=== PATIENT | female | born 1940 | race Asian ===

== ENCOUNTER 2017-04-04 20:42 | Emergency (ER) | payer OTHER ==
[2017-04-04 20:58] VITALS: BMI 26.4
--- NOTE | 2017-04-04 21:58 | PDOC ---
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 Patients Hx provided via video game tester phones as patient speaks Upper Sorbian. Patient notes that when she lifts her L leg her L hip hurts. Patient reports falling in October and experiencing similar symptoms that went away. Patient also endorses tingling in L foot. Patient denies recent trauma. Patient denies numbness. Patient denies fevers, chills, nausea, vomiting and diarrhea. Patient denies chest pain, palpitations and lightheadedness. Patient denies problems with urination. [employer] phone- [phone] <AsatrangAlessandra amanda - Last Filed: 04/05/17 00:40> - General Chief Complaint: Back Pain Stated Complaint: LOWER BACK PAIN Time Seen by Provider: 04/04/17 20:59 Past History - Past Medical History Suicide Attempt (Hx): No - Surgical History Cholecystectomy: Yes (MORE THAN 10 YEARS AGO) - Psycho/Social/Smoking Cessation Hx Anxiety: No Suicidal Ideation: No Smoking History: Never smoked Have you smoked in the past 12 months: No Hx Alcohol Use: No Drug/Substance Use Hx: No Substance Use Type: None <Elaine Wilcox - Last Filed: 04/05/17 00:25> <AsakayAlessandra - Last Filed: 04/05/17 00:40> - Past Medical History Allergies/Adverse Reactions: Allergies Allergy/AdvReac Type Severity Reaction Status Date / Time No Known Allergies Allergy Verified 04/04/17 21:13 Home Medications: Ambulatory Orders Nitrofurantoin Macrocrystal [Macrodantin -] 100 mg PO BID #14 capsule 04/05/17 Review of Systems - Review of Systems Able to Perform ROS?: Yes Comments:: CONSTITUTIONAL: Absent: fever, chills, diaphoresis, generalized weakness, malaise, loss of appetite HEENT: Absent: rhinorrhea, nasal congestion, throat pain, throat swelling, difficulty swallowing, mouth swelling, ear pain, eye pain, visual Changes CARDIOVASCULAR: Absent: chest pain, syncope, palpitations, irregular heart rate , lightheadedness, peripheral edema RESPIRATORY: Absent: cough, shortness of breath, dyspnea with exertion, orthopnea, wheezing, stridor, hemoptysis GASTROINTESTINAL: Absent: abdominal pain, abdominal distension, nausea, vomiting , diarrhea, constipation, melena, hematochezia GENITOURINARY: Absent: dysuria, frequency, urgency, hesitancy, hematuria, flank pain, genital pain MUSCULOSKELETAL: + Lower back pain radiating to L leg. Absent: joint swelling SKIN: Absent: rash, itching, pallor NEUROLOGIC: Absent: headache, focal weakness or paresthesia, dizziness, unsteady gait, seizure, mental status changes, bladder or bowel incontinence PSYCHIATRIC: Absent: anxiety, depression, suicidal or homicidal ideation, hallucination <KatelynnAlessandra - Last Filed: 04/05/17 00:40> *Physical Exam - Vital Signs Last Vital Signs Temp Pulse Resp BP Pulse Ox 98.1 F 81 18 124/65 96 04/04/17 20:54 04/04/17 20:54 04/04/17 20:54 04/04/17 20:54 04/04/17 20:54 <Elaine Wilcox - Last Filed: 04/05/17 00:25> - Vital Signs Last Vital Signs Temp Pulse Resp BP Pulse Ox 98.1 F 81 18 124/65 96 04/04/17 20:54 04/04/17 20:54 04/04/17 20:54 04/04/17 20:54 04/04/17 20:54 - Physical Exam Comments: GENERAL: Well-appearing, well-nourished. No apparent distress. HEENT: Normocephalic, atraumatic. PERRL, EOM intact. CARDIOVASCULAR: Normal S1, S2. Regular rate and rhythm. PULMONARY: Clear to auscultation bilaterally. ABDOMEN: Soft, non-distended, non-tender. EXTREMITIES: Normal ROM in all four extremities. No gross deformities. SKIN: Warm, dry. No rash NEUROLOGICAL: No focal neurological deficits. Cranial nerves 2-12 intact. No fecal incontinence. <KatelynnAlessandra - Last Filed: 04/05/17 00:40> ED Treatment Course - ADDITIONAL ORDERS Additional order review: Laboratory Results 04/04/17 22:40 Urine Color Straw Urine Appearance Clear Urine pH 7.0 Urine Protein Negative Urine Glucose (UA) Negative Urine Ketones Negative Urine Blood Negative Urine Nitrite Negative Urine Bilirubin Negative Urine Urobilinogen Negative Ur Leukocyte Esterase 2+ H Urine RBC 1 Urine WBC 11 Ur Epithelial Cells Rare - RADIOLOGY Radiograph Interpretation: CT Lumbar Spine Impression: L2-L3 moderate degenerative disc disease with mild broad-based disc bulge L3- L4 mild broadbase disc bulge probably slightly impinging right L3 nerve root with mild to moderate degenerative central spinal canal stenosis. L4-L5 mild disc bulge impinging right L4 nerve root with moderate degenerative central spinal canal stenosis - Medications Given in the ED: ED Medications Discontinued Medications Generic Name Dose Route Start Last Admin Trade Name Freq PRN Reason Stop Dose Admin Ketorolac Tromethamine 60 mg 04/04/17 22:28 04/04/17 22:47 Toradol Injection - IM 04/04/17 22:29 60 mg ONCE ONE Administration <Alessandra Pace - Last Filed: 04/05/17 00:40> Medical Decision Making - Medical Decision Making 04/05/17 00:25 I explained to the patient and her through a Upper Sorbian video game tester using the [employer] phone if she ever experiences any saddle anesthesia, weakness to her legs, incontinence of stool that this is an emergency. She must return to emergency department immediately if this happens a copy of the CAT scan was given to the patient to take to her physician in [place], [place] No acute vertebral fractures were appreciated. However, she had extensive degenerative joint disease and some mild nerve impingement with spinal stenosis pt's pain resolved and she was discharged home <Elaine Wilcox - Last Filed: 04/05/17 00:25> *DC/Admit/Observation/Transfer <Elaine Wilcox - Last Filed: 04/05/17 00:25> - Attestations Scribe Attestion: Documentation prepared by Alessandra Pace, acting as medical receptionist for Elaine Wilcox MD/DO. <Alessandra Pace - Last Filed: 04/05/17 00:40> Diagnosis at time of Disposition: Low back pain Qualifiers: Chronicity: unspecified Back pain laterality: unspecified Sciatica presence: without sciatica Qualified Code(s): M54.5 - Low back pain DJD (degenerative joint disease), lumbar Qualifiers: Spinal osteoarthritis complication: unspecified spinal osteoarthritis Qualified Code(s): M47.816 - Spondylosis without myelopathy or radiculopathy, lumbar region - Discharge Dispostion Disposition: HOME Condition at time of disposition: Stable - Prescriptions Prescriptions: Nitrofurantoin Macrocrystal [Macrodantin -] 100 mg PO BID #14 capsule - Patient Instructions Printed Discharge Instructions: DI for Low Back Pain Additional Instructions: please see your doctor this week
[2017-04-04] MEDS ORDERED: KETOROLAC TROMETHAMINE 60 MG/2 ML VIAL IM ONE (22:28)
[2017-04-04] MEDS ORDERED: KETOROLAC TROMETHAMINE 60 MG/2 ML VIAL ONE ×2 (22:40→22:41)
[2017-04-04 22:50] LABS: URINE APPEARANCE CLEAR; URINE BILIRUBIN NEGATIVE (NEGATIVE); URINE BLOOD NEGATIVE (NEGATIVE); URINE COLOR STRAW; URINE GLUCOSE (UA) NEGATIVE (NEGATIVE); URINE KETONE NEGATIVE (NEGATIVE); URINE NITRITE NEGATIVE (NEGATIVE); URINE PROTEIN NEGATIVE (NEGATIVE); URINE UROBILINOGEN NEGATIVE E.U./dl (0.2-1.0)
[2017-04-04 23:06] LABS: URINE LEUK ESTERASE 2+ (NEGATIVE)
[2017-04-04 23:07] LABS: URINE RBC 1 /hpf (0-3); URINE WBC 11 /hpf (3-5)
[2017-04-05 00:47] VITALS: BP 125/68; PULSE 78; TEMP 98
== END 2017-04-05 00:40 | disposition home or self-care (01) ==
LOC: JER 20:42
PROC: 3E0233Z Introduction of Anti-inflammatory into Muscle, Percutaneous Approach (ICD-10-PCS; principal; 2017-04-04)
DX: M47.816 Spondylosis without myelopathy or radiculopathy, lumbar region (principal); G30.9 Alzheimer's disease, unspecified; F02.80 Dementia in other diseases classified elsewhere, unspecified severity, without behavioral disturbance, psychotic disturbance, mood disturbance, and anxiety; E78.00 Pure hypercholesterolemia, unspecified
CPT/HCPCS: 72131-TC; 81003; 81015; 96372; 99282-25

== ENCOUNTER 2017-04-22 15:34 | Emergency (ER) | payer OTHER ==
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
[2017-04-22 15:49] VITALS: TEMP 98.3; BMI 23.8
[2017-04-22] MEDS ORDERED: NAPROXEN 500 MG TABLET (FP) PO ONE (16:08)
[2017-04-22] MEDS ORDERED: traMADol HCL 50 MG TABLET PO ONE (16:08)
[2017-04-22] MEDS ORDERED: NAPROXEN 500 MG TABLET (FP) ONE (16:22)
[2017-04-22] MEDS ORDERED: traMADol HCL 50 MG TABLET ONE (16:23)
[2017-04-22 17:30] VITALS: BP 134/72; PULSE 73
== END 2017-04-22 17:30 | disposition home or self-care (01) ==
LOC: JER 15:34
DX: M54.16 Radiculopathy, lumbar region (principal); E78.00 Pure hypercholesterolemia, unspecified
CPT/HCPCS: 99282-25

== ENCOUNTER 2018-06-22 12:59 | Emergency (ER) | payer OTHER ==
--- NOTE | 2018-06-22 13:14 | PDOC ---
Attending Attestation - HPI HPI: 06/22/18 15:53 The patient is a 77 year old female with a significant PMH of hypercholesterolemia, disc disease, and alzheimer's who presents to the emergency department with worsening back pain today. The patient reports that her back pain is right sided and non radiating. The patient states that she was at home sitting down after breakfast when she felt an onset of back pain. The patient's son reports that the patient was seen in the hospital about 1 year ago with similar complaints by which she received a shot in her back for pain. The patient denies any other symptoms. She denies any fever, chills, nausea, vomit, diarrhea, constipation or urinary symptoms. She denies chest pain, shortness of breath, headache and dizziness. The patient denies any other complaints. - Physicial Exam PE: 06/22/18 15:53 GENERAL: Awake, alert, and fully oriented, in no acute distress HEAD: No signs of trauma EYES: PERRLA, EOMI, sclera anicteric, conjunctiva clear ENT: Auricles normal inspection, hearing grossly normal, nares patent, oropharynx clear without exudates. Moist mucosa NECK: Normal ROM, supple, no lymphadenopathy, JVD, or masses LUNGS: Breath sounds equal, clear to auscultation bilaterally. No wheezes, and no crackles HEART: Regular rate and rhythm, normal S1 and S2, no murmurs, rubs or gallops ABDOMEN: Soft, nontender, normoactive bowel sounds. No guarding, no rebound. No masses EXTREMITIES: Normal range of motion, no edema. No clubbing or cyanosis. No cords, erythema, or tenderness NEUROLOGICAL: (+)paraspinal lumbar spine tenderness. Normal sensation, neuro intact. Cranial nerves II through XII grossly intact. Normal speech, normal gait SKIN: Warm, Dry, normal turgor, no rashes or lesions noted. Documentation prepared by Zahira Whitlock, acting as diploma medical assistant for Loreto Madden MD. <Zahira Whitlock - Last Filed: 06/22/18 15:53> - Resident Resident Name: Bryant Nevarez - ED Attending Attestation I have performed the following: I have examined & evaluated the patient, The case was reviewed & discussed with the resident, I agree w/resident's findings & plan, Exceptions are as noted - Medical Decision Making 06/22/18 13:14 I, Dr. Loreto Madden, DO, attest that this document has been prepared under my direction and personally reviewed by me in its entirety. I further attest, that it accurately reflects all work, treatment, procedures and medical decision -making performed by me. 06/22/18 14:53 a/p: 77yo female with worsening back pain -no new trauma. -no radiation of pain, no paresthesias, no red flags for acute back pain, no loss of control of bowel or bladder, no caude equina symptoms -will send labs, xray lumbar spine, will medicate for pain -no abd pain, no palpable masses, hx of lumbar spine djd with hx of epidural injection to L spine -will need outpt follow up with ortho vs spine -discussed the plan with the son and the patient who agree with the plan. 06/22/18 17:09 pt with L1 partial compression fx on xray case discussed with Dr. Brown - no neuro deficits on exam, recommends outpt follow up in the office recommends TLSO brace if pain or neuro deficits occur then return STAT to the ED 06/22/18 17:18 TLSO brace applied to the patient discussed in detail all reasons to return to the ED answered all questions stable for d/c to home ambulated in the ED <Loreto Madden - Last Filed: 06/22/18 17:32> Discharge Disposition - Discharge Dispostion Decision to Admit order: No <Loreto Madden - Last Filed: 06/22/18 17:32> - Diagnosis Low back pain, Compression fracture of L1 lumbar vertebra - Discharge Dispostion Disposition: HOME Condition at time of disposition: Stable - Prescriptions Prescriptions: Oxycodone HCl/Acetaminophen [Percocet 5-325 mg Tablet] 1 tab PO Q6H PRN #10 tablet MDD 4 tabs PRN Reason: Pain - Referrals Referrals: Abimael Brown MD, [facility] [Staff Physician] - - Patient Instructions Printed Discharge Instructions: DI for Vertebral Fracture Additional Instructions: Please call Dr. Brown to schedule and appointment. Please return to the Ed if you pain worsens. Please be careful taking the percocet. Please wear the brace for support. Please return to the ED if you develop weakness or numbness. Please follow up with your PMD.
[2018-06-22 13:16] VITALS: TEMP 99.8; BMI 27.1
[2018-06-22] MEDS ORDERED: METHOCARBAMOL 500 MG TABLET PO ONE (13:37)
[2018-06-22] MEDS ORDERED: ACETAMINOPHEN 500 MG TABLET (FP) PO ONE (13:37)
--- NOTE | 2018-06-22 14:03 | PDOC ---
History of Present Illness - General Chief Complaint: Back Pain Stated Complaint: PAIN Time Seen by Provider: 06/22/18 13:09 History Source: Patient, Family (Son present for interview.) Exam Limitations: Language Barrier (Pt is primarily Danish speaking but conversent in Kenyan. Son provided occasional interpretation as needed. ) - History of Present Illness Initial Comments: 77 y/o female presenting to [facility] ER via ambulance complaining of lower back pain. The symptoms began approx. 40 min ago while the pt was at rest. Pain is localized to lower right paraspinous region without radiation; made worse by movement of trunk. Denies numbness, weakness, or paresthesia to lower limbs. Denies urinary or bladder incontinence. She denies recent trauma to the area. Has experienced similar pain approx. 1 year ago. Was evaluated in this facility. CT of lumbar spine showed disc bulging L2-L5 with possible impingement of R L3 and L4 nerve roots (Full report in [employer]). Pain was controlled and pt was given referral for outpatient neurology f/u but she reports never following up as her pain did not return. Past History - Past Medical History Allergies/Adverse Reactions: Allergies Allergy/AdvReac Type Severity Reaction Status Date / Time No Known Allergies Allergy Verified 06/22/18 13:08 Home Medications: Ambulatory Orders Cholecalciferol (Vitamin D3) [Vitamin D3] 1,000 unit PO DAILY 06/22/18 Gabapentin [Neurontin -] 100 mg PO Q8H 06/22/18 Losartan Potassium [Cozaar -] 25 mg PO DAILY 06/22/18 Meloxicam [Mobic (Nf) -] 7.5 mg PO DAILY 06/22/18 Memantine HCl [Memantine HCl ER] 14 mg PO DAILY 06/22/18 Oxycodone HCl/Acetaminophen [Percocet 5-325 mg Tablet] 1 tab PO Q6H PRN #10 tablet MDD 4 tabs 06/22/18 COPD: No HTN: Yes Hypercholesterolemia: Yes - Surgical History Cholecystectomy: Yes (MORE THAN 10 YEARS AGO) - Immunization History Immunization Up to Date: Yes - Suicide/Smoking/Psychosocial Hx Smoking History: Never smoked Have you smoked in the past 12 months: No Information on smoking cessation initiated: No Hx Alcohol Use: No Drug/Substance Use Hx: No Substance Use Type: None Review of Systems - Review of Systems Able to Perform ROS?: Yes Is the patient limited Kenyan proficient: Yes Constitutional: No: Weakness HEENTM: No: Recent change in vision, Hearing Loss Respiratory: No: Shortness of Breath Cardiac (ROS): No: Chest Pain ABD/GI: No: Constipated, Diarrhea, Nausea, Vomiting, Abdominal cramping Musculoskeletal: Yes: Back Pain, Muscle Pain. No: Muscle Weakness Integumentary: No: Bruising Neurological: No: Numbness, Paresthesia, Tingling, Weakness *Physical Exam - Vital Signs Last Vital Signs Temp Pulse Resp BP Pulse Ox 99.8 F H 88 18 159/83 98 06/22/18 13:15 06/22/18 13:15 06/22/18 13:15 06/22/18 13:15 06/22/18 13:15 - Physical Exam Comments: Constitutional: Well-developed, well-nourished female in no acute life threat but some obvious discomfort. Found semi-fowlers in hospital bed. Alert and oriented x4. Answered all questions appropriately and completely. Speech was non -labored, non-pressured. HEENT: Normocephalic. No obvious external signs of trauma. Hearing grossly normal. No nasal discharge. Neck is supple, trachea is midline. Cardiovascular: Regular rate and regular rhythm. No murmur, rubs, clicks, or gallops. Peripheral pulses: Radial pulses full. Respiratory: Equal chest rise and fall. Clear to auscultation bilaterally. No stridor, no wheezing, no rhonchi. Neuro: Alert and oriented. Moving all four extremities spontaneously. Intact sensation to all four extremities. Hip flexion, extension, adduction, and abduction 5/5; plantar flexion and dorsiflexion 5/5. Back / MSK: No midline tenderness in thoracic or lumbar spines. No obvious bony deformities. No bruising or other obvious signs of trauma to the area. Skin: Warm, dry, and intact. No bruising, rashes, or other lesions. No palpable nodules. Psych: Affect: appropriate. Mood: normal. ED Treatment Course - LABORATORY CBC & Chemistry Diagram: 06/22/18 14:20 06/22/18 14:20 - RADIOLOGY Radiology Studies Ordered: Category Date Time Status SPINE-LUMBAR SACRAL [RAD] Stat Radiology 06/22/18 13:56 Ordered Medical Decision Making - Medical Decision Making *Reviewed nursing notes and prior visit documentation. 77 y/o female complaining of lower back pain in setting of known old traumatic injury to area. No red flags concerning for cauda equina or high level cord compression elicited. Abebrile. Vitals remarkable for hypertension without tachycardia. Physical exam revealed subjective tenderness to right paraspinous area with intact neurovascular exam of lower extremities. Suspect musculoskeletal versus radiculopathy back pain. Low suspicion for abscess as pain is acute onset, no identifiable risk factors, and afebrile Low suspicion for aortic dissection as pain is very similar to past in setting of known traumatic injury to the area. Low suspicion for nephrolithiasis or pyelonephritis. Will obtain CBC, BMP, UA, urine culture, and plain films of lower back. Ordered tylenol and robaxin for symptom relief. 16:40 Pt reports her back pain feels better. CBC, BMP, and UA are unremarkable for derangement. Plain films showed Continue to suspect MSK pain. Lumbar Sacral Plain Films: Compression fracture of L1. Not documented on previous CT. Likely source of pain. Attending telephone consult with Dr. Abimael Brown, who recommends application of TLSO back brace with outpatient follow up. Asked for pt to call office. Would like to evaluate on the or 04 of July. Discussed results and recommendations with pt and son. Both expressed verbal understanding and agreement with plan to discharge home with outpatient follow up. Will prescribe Percocet for pain relief. Strict instructions were given for pt to not be left alone while taking this medication. Also gave strict return precautions. Pt discharged from department without further incident. *DC/Admit/Observation/Transfer Diagnosis at time of Disposition: Low back pain Qualifiers: Chronicity: acute Back pain laterality: right Sciatica presence: without sciatica Qualified Code(s): M54.5 - Low back pain Compression fracture of L1 lumbar vertebra Qualifiers: Encounter type: initial encounter Fracture type: closed Qualified Code(s): S32.010A - Wedge compression fracture of first lumbar vertebra, initial encounter for closed fracture - Discharge Dispostion Disposition: HOME Condition at time of disposition: Stable Decision to Admit order: No - Prescriptions Prescriptions: Oxycodone HCl/Acetaminophen [Percocet 5-325 mg Tablet] 1 tab PO Q6H PRN #10 tablet MDD 4 tabs PRN Reason: Pain - Referrals Referrals: Abimael Brown MD, FA[facility] [Staff Physician] - - Patient Instructions Printed Discharge Instructions: DI for Vertebral Fracture, DI for Low Back Pain Additional Instructions: The x-ray of your back showed a new compression fracture of your L1 vertebra. This is new from your last visit in March 2017. Please follow up with Dr. Brown, a neurosurgeon. He asked that you call his office on Monday to make an appointment. The number is listed below. I have sent a prescription for Percocet to the [address] [place] [address] [place] [address]. Their phone number is . Please don't take this medication while you are alone. Please wear your back brace during the day. You do not have to wear it while you sleep. Please come back to the emergency department if you begin to feel extreme pain, you loose control of your bladder or bowels, or your leg becomes numb. You can also come back if you feel like your condition requires additional emergency evaluation. Print Language: WALLISIAN - Post Discharge Activity
[2018-06-22] MEDS ORDERED: ACETAMINOPHEN 325 MG TABLET (FP) ONE (14:05)
[2018-06-22] MEDS ORDERED: METHOCARBAMOL 500 MG TABLET ONE (14:06)
[2018-06-22 14:31] LABS: HEMATOCRIT 39.6 % (32.4-45.2); HEMOGLOBIN 13.2 GM/dL (10.7-15.3); MCH 28.6 pg (25.7-33.7); MCHC 33.4 g/dl (32.0-36.0); MEAN CELL VOLUME 85.5 fl (80-96); MEAN PLT VOLUME 8.3 fl (7.5-11.1); PLATELET COUNT 187 K/MM3 (134-434); RBC 4.63 M/mm3 (3.60-5.2); RDW 13.7 % (11.6-15.6); WHITE BLOOD COUNT 8.3 K/mm3 (4.0-10.0)
[2018-06-22 14:52] LABS: ANION GAP 5 MMOL/L (8-16); BLOOD UREA NITROGEN 15 mg/dL (7-18); CALCIUM 8.5 mg/dL (8.5-10.1); CHLORIDE 106 mmol/L (98-107); CO2 31 mmol/L (21-32); CREATININE 0.7 mg/dL (0.55-1.02); GLUCOSE,RANDOM 94 mg/dL (74-106); SODIUM 142 mmol/L (136-145)
[2018-06-22 14:53] LABS: POTASSIUM 4.3 mmol/L (3.5-5.1)
[2018-06-22 15:32] LABS: URINE APPEARANCE CLEAR; URINE BILIRUBIN NEGATIVE (<2.0 mg/dL); URINE COLOR LTYELLOW; URINE GLUCOSE (UA) NEGATIVE (NEGATIVE); URINE KETONE NEGATIVE (NEGATIVE); URINE LEUK ESTERASE NEGATIVE (NEGATIVE); URINE NITRITE NEGATIVE (NEGATIVE); URINE PROTEIN NEGATIVE (NEGATIVE); URINE UROBILINOGEN NEGATIVE mg/dL (0.2-1.0)
[2018-06-22 17:25] VITALS: BP 150/85; PULSE 94
== END 2018-06-22 17:45 | disposition home or self-care (01) ==
LOC: JER 12:59
DX: M54.5 Low back pain (principal); M48.56XA Collapsed vertebra, not elsewhere classified, lumbar region, initial encounter for fracture; E78.00 Pure hypercholesterolemia, unspecified; G30.9 Alzheimer's disease, unspecified; F02.80 Dementia in other diseases classified elsewhere, unspecified severity, without behavioral disturbance, psychotic disturbance, mood disturbance, and anxiety
CPT/HCPCS: 36415; 72100-TC-FY; 80048; 81003; 85027; 87086; 87186; 99282-25

== ENCOUNTER 2019-04-04 05:40 | Inpatient (IN) | payer OTHER ==
[2019-04-04 05:56] VITALS: BMI 27.3
[2019-04-04 07:44] LABS: URINE APPEARANCE CLEAR; URINE BILIRUBIN NEGATIVE (NEGATIVE); URINE COLOR YELLOW; URINE GLUCOSE (UA) NEGATIVE (NEGATIVE); URINE KETONE NEGATIVE (NEGATIVE); URINE LEUK ESTERASE NEGATIVE (NEGATIVE); URINE NITRITE NEGATIVE (NEGATIVE); URINE PROTEIN NEGATIVE (NEGATIVE); URINE UROBILINOGEN 0.2 mg/dL (0.2-1.0)
[2019-04-04] MEDS ORDERED: KETOROLAC TROMETHAMINE 30 MG/1 ML VIAL IM ONE (07:58)
[2019-04-04] MEDS ORDERED: KETOROLAC TROMETHAMINE 30 MG/1 ML VIAL ONE (08:04)
--- NOTE | 2019-04-04 08:31 | PDOC ---
History of Present Illness - General Chief Complaint: Back Pain Stated Complaint: BACK PAIN Time Seen by Provider: 04/04/19 07:07 - History of Present Illness Initial Comments: 04/04/19 08:26 78 F with h/o HLD presents to ED with 3 weeks of lower back pain. Pt states that her pain initially started after getting a massage last year. She states that the masseuse put too much pressure on her lower back. She felt very sore immediately after the massage, and the next morning, she states her lower back was so tight that she had difficulty getting out of bed. The pain has acutely worsened over the past 3 weeks. Denies any additional falls or trauma. Pt denies weakness/numbness in her legs. Denies any saddle anesthesia. No difficulty voiding or incontinence. Pt states that she has been ambulating normally. Her pain is localized more to the L side. Past History - Past Medical History Allergies/Adverse Reactions: Allergies Allergy/AdvReac Type Severity Reaction Status Date / Time No Known Allergies Allergy Verified 04/04/19 05:56 Home Medications: Ambulatory Orders Memantine HCl [Memantine HCl ER] 14 mg PO DAILY 06/22/18 Abaloparatide [Tymlos] 1.56 ml SQ DAILY 04/04/19 Icosapent Ethyl [Vascepa] 2 gm PO BID 04/04/19 Losartan Potassium 50 mg PO DAILY 04/04/19 Rosuvastatin [Crestor -] 5 mg PO HS 04/04/19 COPD: No HTN: Yes Hypercholesterolemia: Yes - Surgical History Cholecystectomy: Yes (MORE THAN 10 YEARS AGO) - Immunization History Immunization Up to Date: Yes - Suicide/Smoking/Psychosocial Hx Smoking History: Never smoked Have you smoked in the past 12 months: No Information on smoking cessation initiated: No Hx Alcohol Use: No Drug/Substance Use Hx: No Substance Use Type: None Review of Systems - Review of Systems Comments:: 04/04/19 08:29 "GENERAL/CONSTITUTIONAL: No fever or chills. No weakness. HEAD, EYES, EARS, NOSE AND THROAT: No change in vision. No ear pain or discharge. No sore throat. CARDIOVASCULAR: No chest pain, no shortness of breath, no loss of consciousness RESPIRATORY: No cough, wheezing, or hemoptysis. GASTROINTESTINAL: No nausea, vomiting, diarrhea or constipation. GENITOURINARY: No dysuria, frequency, or change in urination. MUSCULOSKELETAL: + lower back pain SKIN: No rash NEUROLOGIC: No vertigo, no change in strength/sensation. ENDOCRINE: No increased thirst. No abnormal weight change. HEMATOLOGIC/LYMPHATIC: No anemia, easy bleeding, or history of blood clots. ALLERGIC/IMMUNOLOGIC: No hives or skin allergy. *Physical Exam - Vital Signs Last Vital Signs Temp Pulse Resp BP Pulse Ox 98.1 F 77 18 139/76 97 04/04/19 05:46 04/04/19 05:46 04/04/19 05:46 04/04/19 05:46 04/04/19 05:46 - Physical Exam Comments: 04/04/19 08:29 "GENERAL: Awake, alert, and fully oriented, in no acute distress. HEAD: No signs of trauma EYES: PERRLA, EOMI, sclera anicteric, conjunctiva clear ENT: Auricles normal inspection, hearing grossly normal, nares patent, oropharynx clear without exudates. Moist mucosa NECK: Nontender, no stepoffs, Normal ROM, supple, no lymphadenopathy, JVD, or masses LUNGS: Breath sounds equal, clear to auscultation bilaterally. No wheezes, and no crackles HEART: Regular rate and rhythm, normal S1 and S2, no murmurs, rubs or gallops ABDOMEN: Soft, nontender, normoactive bowel sounds. No guarding, no rebound. No masses EXTREMITIES: Normal range of motion, no edema. No clubbing or cyanosis. No cords, erythema, or tenderness NEUROLOGICAL: Cranial nerves II through XII intact. 5/5 strength and sensation in all extremities, Normal speech, normal gait, normal cerebellar function SKIN: Warm, Dry, normal turgor, no rashes or lesions noted. BACK: + L lumbar paraspinal TTP, no stepoffs, no midline tenderness, neurovascularly intact BLE ED Treatment Course - LABORATORY CBC & Chemistry Diagram: 04/04/19 10:30 04/04/19 10:30 - ADDITIONAL ORDERS Additional order review: Laboratory Results 04/04/19 06:35 Urine Color Yellow Urine Appearance Clear Urine pH 6.0 Ur Specific [place] 1.011 Urine Protein Negative Urine Glucose (UA) Negative Urine Ketones Negative Urine Blood Negative Urine Nitrite Negative Urine Bilirubin Negative Urine Urobilinogen 0.2 Ur Leukocyte Esterase Negative - RADIOLOGY Radiology Studies Ordered: Category Date Time Status LUMBAR SPINE CT W/O CONTRAST [CT] Stat CT Scan 04/04/19 07:58 Ordered - Medications Given in the ED: ED Medications Discontinued Medications Generic Name Dose Route Start Last Admin Trade Name Ernesto PRN Reason Stop Dose Admin Ketorolac Tromethamine 30 mg 04/04/19 07:58 04/04/19 08:00 Toradol Injection - IM 04/04/19 07:59 30 mg ONCE ONE Administration Medical Decision Making - Medical Decision Making 04/04/19 08:30 78 F with lower back pain. No signs of cauda equina or cord compression on exam. No fevers to suggest epidural abscess. Pt ambulatory with normal neuro exam. - CT L spine to r/o fx - Toradol 04/04/19 10:09 CT shows T12 compression fx with retropulsion Case discussed with Dr. De Luna, lily decision support analyst, who recommends admission to hospital for MRI and pain control/brace. *DC/Admit/Observation/Transfer Diagnosis at time of Disposition: Compression fracture - Discharge Dispostion Condition at time of disposition: Fair Decision to Admit order: Yes - Referrals - Patient Instructions - Post Discharge Activity - Attestations Physician Attestion: 04/04/19 10:10 I, Dr. Tyler Pizarro MD, attest that this document has been prepared under my direction and personally reviewed by me in its entirety. I further attest, that it accurately reflects all work, treatment, procedures and medical decision -making performed by me.
[2019-04-04 08:42] LABS: PH,URINE 6.5 (5.0-8.0); URINE APPEARANCE CLEAR; URINE BILIRUBIN NEGATIVE (NEGATIVE); URINE COLOR YELLOW; URINE GLUCOSE (UA) NEGATIVE (NEGATIVE); URINE KETONE NEGATIVE (NEGATIVE); URINE LEUK ESTERASE NEGATIVE (NEGATIVE); URINE NITRITE NEGATIVE (NEGATIVE); URINE PROTEIN NEGATIVE (NEGATIVE); URINE UROBILINOGEN 0.2 mg/dL (0.2-1.0)
--- NOTE | 2019-04-04 10:34 | HP ---
CHIEF COMPLAINT: back pain PCP: In [place] HISTORY OF PRESENT ILLNESS: Patient is an 78 Yo Georgian speaking F with a PMHx of HTN, HLD, presented to the ED because of worsening lower back pain. Patient states she had a deep tissue massage 2 months ago and since then she's had persistent, worsening pain. She says the masseuse put too much pressure on her back. Currently the pain is a 6/ 10, non radiating pain. She said this morning she had a hard time getting out of bed which prompted her to go to the ED. In the ED, she was found with a T12 compression fracture with retropulsion. Dr. De Luna (Neuro Sx) was called and requested admission for further evaluation. Patient currently denies sob, chest pain, nausea, vomiting, fevers, chills, sob , recent travel, numbness, tingling, weakness, loss of bladder control, urinary changes. Recent Travel: denies PAST MEDICAL HISTORY: HTN, HLD PAST SURGICAL HISTORY: cholecystectomy 10 years ago Social History: Smoking: denies Alcohol: denies Drugs: denies Allergies No Known Allergies Allergy (Verified 04/04/19 05:56) HOME MEDICATIONS: Home Medications Medication Instructions Recorded Memantine HCl [Memantine HCl ER] 14 mg PO DAILY 06/22/18 REVIEW OF SYSTEMS CONSTITUTIONAL: Absent: fever, chills, diaphoresis, generalized weakness, malaise, loss of appetite, weight change HEENT: Absent: rhinorrhea, nasal congestion, throat pain, throat swelling, difficulty swallowing, mouth swelling, ear pain, eye pain, visual changes CARDIOVASCULAR: Absent: chest pain, syncope, palpitations, irregular heart rate, lightheadedness , peripheral edema RESPIRATORY: Absent: cough, shortness of breath, dyspnea with exertion, orthopnea, wheezing, stridor, hemoptysis GASTROINTESTINAL: Absent: abdominal pain, abdominal distension, nausea, vomiting, diarrhea, constipation, melena, hematochezia GENITOURINARY: Absent: dysuria, frequency, urgency, hesitancy, hematuria, flank pain, genital pain MUSCULOSKELETAL: Absent: myalgia, arthralgia, joint swelling, neck pain SKIN: Absent: rash, itching, pallor HEMATOLOGIC/IMMUNOLOGIC: Absent: easy bleeding, easy bruising, lymphadenopathy, frequent infections ENDOCRINE: Absent: unexplained weight gain, unexplained weight loss, heat intolerance, cold intolerance NEUROLOGIC: Absent: headache, focal weakness or paresthesias, dizziness, unsteady gait, seizure, mental status changes, bladder or bowel incontinence PSYCHIATRIC: Absent: anxiety, depression, suicidal or homicidal ideation, hallucinations. PHYSICAL EXAMINATION Vital Signs - 24 hr 04/04/19 05:46 Temperature 98.1 F Pulse Rate 77 Respiratory 18 Rate Blood Pressure 139/76 O2 Sat by Pulse 97 Oximetry (%) GENERAL: Awake, alert, and fully oriented, in no acute distress. HEAD: Normal with no signs of trauma. EYES: Pupils equal, round and reactive to light, extraocular movements intact, sclera anicteric, conjunctiva clear. EARS, NOSE, THROAT: Ears normal, nares patent, oropharynx clear without exudates. Moist mucous membranes. NECK: Normal range of motion, supple LUNGS: Breath sounds equal, clear to auscultation bilaterally. No wheezes, and no crackles. HEART: Regular rate and rhythm, normal S1 and S2 without murmur, rub or gallop. ABDOMEN: Soft, nontender, not distended, normoactive bowel sounds, no guarding, no rebound, no masses. MUSCULOSKELETAL: Normal range of motion at all joints. No bony deformities or tenderness. No CVA tenderness. LOWER EXTREMITIES: 2+ pulses, warm, well-perfused. No calf tenderness. No peripheral edema. NEUROLOGICAL: Cranial nerves II-XII intact. Normal speech. Normal gait. Laboratory Results - last 24 hr 04/04/19 04/04/19 06:35 08:15 Urine Color Yellow Yellow Urine Appearance Clear Clear Urine pH 6.0 6.5 Ur Specific [place] 1.011 1.008 L Urine Protein Negative Negative Urine Glucose (UA) Negative Negative Urine Ketones Negative Negative Urine Blood Negative Negative Urine Nitrite Negative Negative Urine Bilirubin Negative Negative Urine Urobilinogen 0.2 0.2 Ur Leukocyte Esterase Negative Negative ASSESSMENT/PLAN: 78 Yo Georgian speaking F with a PMHx of HTN, HLD, presented to the ED because of worsening lower back pain. #T12 Compression Fx with Retropulsion -Neuro sx consulted: Dr. De Luna -Pain control with Percocet q6h -NPO for now -Lumbar/Thoracic MRI ordered -PT #HTN/HLD -cont. Losartan 50mg daily -Rosovastatin 5mg daily #FEN -no Iv fluids -monitor -npo #DVt Ppx -hep sq dispo: med-surge Visit type - Emergency Visit Emergency Visit: Yes ED Registration Date: 04/04/19 Care time: The patient presented to the Emergency Department on the above date and was hospitalized for further evaluation of their emergent condition. - New Patient This patient is new to me today: Yes Date on this admission: 04/06/19 - Critical Care Critical Care patient: No
[2019-04-04 11:04] LABS: EOS % 1.6 % (0-4.5); HEMATOCRIT 40.6 % (32.4-45.2); HEMOGLOBIN 13.3 GM/dL (10.7-15.3); MCH 28.8 pg (25.7-33.7); MCHC 32.7 g/dl (32.0-36.0); MEAN CELL VOLUME 88.2 fl (80-96); MEAN PLT VOLUME 7.4 fl (7.5-11.1); MONO % 4.9 % (3.8-10.2); NEUT % 51.5 % (42.8-82.8); PLATELET COUNT 230 K/MM3 (134-434); RDW 13.2 % (11.6-15.6); WHITE BLOOD COUNT 8.1 K/mm3 (4.0-10.0)
[2019-04-04 11:15] LABS: INR 0.96 (0.83-1.09); PROTHROMBIN TIME (PATIENT) 11.3 SEC (9.7-13.0)
[2019-04-04 11:38] LABS: ALBUMIN 4.2 g/dl (3.4-5.0); BILIRUBIN,TOTAL 0.4 mg/dL (0.2-1); CALCIUM 9.4 mg/dL (8.5-10.1); CREATININE 1.1 mg/dL (0.55-1.3); MAGNESIUM 2.5 mg/dL (1.8-2.4); PHOSPHOROUS 3.8 mg/dL (2.5-4.9); POTASSIUM 4.7 mmol/L (3.5-5.1); TOT PROT 7.8 g/dl (6.4-8.2)
--- NOTE | 2019-04-04 14:28 | PN ---
Teaching Attending Note Name of Resident: Berhane Rangel ATTENDING PHYSICIAN STATEMENT I saw and evaluated the patient. I reviewed the resident's note and discussed the case with the resident. I agree with the resident's findings and plan as documented. SUBJECTIVE: Complains of back pain OBJECTIVE: Afebrile, Hemodynamically Stable Last Vital Signs Temp Pulse Resp BP Pulse Ox 98.1 F 77 18 139/76 97 04/04/19 05:46 04/04/19 05:46 04/04/19 05:46 04/04/19 05:46 04/04/19 05:46 HEENT - Atraumatic, Normocephalic. Heart - S1, S2, RRR Lungs - Clear to auscultation Abdomen - Soft, non-tender. Bowel Sounds normal. Extremities - No edema, no calf tenderness MS - Kyphosis. No spinal tenderness Neuro - AAO x 3. Tone/Power normal all 4 extremities Laboratory Results - last 24 hr 04/04/19 04/04/19 04/04/19 06:35 08:15 10:30 WBC 8.1 RBC 4.60 Hgb 13.3 Hct 40.6 MCV 88.2 MCH 28.8 MCHC 32.7 RDW 13.2 Plt Count 230 D MPV 7.4 L D Absolute Neuts (auto) 4.2 Neutrophils % 51.5 D Lymphocytes % 41.0 H Monocytes % 4.9 Eosinophils % 1.6 Basophils % 1.0 Nucleated RBC % 0 PT with INR INR Sodium Potassium Chloride Carbon Dioxide Anion Gap BUN Creatinine Est GFR (CKD-EPI)AfAm Est GFR (CKD-EPI)NonAf Random Glucose Calcium Phosphorus Magnesium Total Bilirubin AST ALT Alkaline Phosphatase Total Protein Albumin Urine Color Yellow Yellow Urine Appearance Clear Clear Urine pH 6.0 6.5 Ur Specific [place] 1.011 1.008 L Urine Protein Negative Negative Urine Glucose (UA) Negative Negative Urine Ketones Negative Negative Urine Blood Negative Negative Urine Nitrite Negative Negative Urine Bilirubin Negative Negative Urine Urobilinogen 0.2 0.2 Ur Leukocyte Esterase Negative Negative 04/04/19 04/04/19 10:30 10:30 WBC RBC Hgb Hct MCV MCH MCHC RDW Plt Count MPV Absolute Neuts (auto) Neutrophils % Lymphocytes % Monocytes % Eosinophils % Basophils % Nucleated RBC % PT with INR 11.30 INR 0.96 Sodium 141 Potassium 4.7 Chloride 104 Carbon Dioxide 31 Anion Gap 6 L BUN 26 H Creatinine 1.1 Est GFR (CKD-EPI)AfAm 54.91 Est GFR (CKD-EPI)NonAf 47.38 Random Glucose 113 H Calcium 9.4 Phosphorus 3.8 Magnesium 2.5 H Total Bilirubin 0.4 AST 22 ALT 24 Alkaline Phosphatase 98 Total Protein 7.8 Albumin 4.2 Urine Color Urine Appearance Urine pH Ur Specific [place] Urine Protein Urine Glucose (UA) Urine Ketones Urine Blood Urine Nitrite Urine Bilirubin Urine Urobilinogen Ur Leukocyte Esterase Current Medications Generic Name Dose Route Start Last Admin Trade Name Freq PRN Reason Stop Dose Admin Heparin Sodium (Porcine) 5,000 unit 04/04/19 18:00 Heparin - SQ Q8H-IV [facility] Losartan Potassium 50 mg 04/05/19 10:00 Cozaar - PO DAILY [facility] Non-Formulary Medication 14 mg 04/05/19 10:00 Memantine Hcl [Memantine Hcl Er] PO DAILY [facility] Rosuvastatin Calcium 5 mg 04/05/19 22:00 Crestor - PO HS [facility] Home Medications Medication Instructions Recorded Memantine HCl [Memantine HCl ER] 14 mg PO DAILY 06/22/18 Abaloparatide [Tymlos] 1.56 ml SQ DAILY 04/04/19 Icosapent Ethyl [Vascepa] 2 gm PO BID 04/04/19 Losartan Potassium 50 mg PO DAILY 04/04/19 Rosuvastatin [Crestor -] 5 mg PO HS 04/04/19 ASSESSMENT AND PLAN: 78 year old female with history of Dementia, HTN, HLD, presented to the ED with progressive lower back pain after deep tissue massage 2 months ago, exacerbated by fall yesterday. No preceeding chest pain/palpitations/lightheadedness. No HI/ LOC. 1. Acute T12 Compression Fracture with Retropulsion CT L SPine - Acute compression/anterior wedging T12 vertebral body with retropulsion of its post/sup margin resulting in moderate canal stenosis. Neurologically intact L/S MRI requested Neurosurgery consult by Dr. De Luna ? candidate for kyphoplasty NeuroSx eval. Pain control with Percocet q6h - further intensification of pain management by NeuroSx PT 2. HTN - Continue Losartan 3. HLD - Continue Rosuvastatin 4. Dementia - Stable. Continue Memantine DVT Px - SCDs. Will hold Heparin/Lovenox given possible NeuroSx intervention. ADDENDUM Patient and want to leave AMA. They were explained at length in Greenlandic using [employer] Phone regarding reason for admission including risks such as worsening back pain, paralysis, disability, . They were also explained need for MRI by NeuroSurgery who explained need for further work-up, brace, etc to patient and . They continue to insist on leaving AMA.
[2019-04-04 16:19] VITALS: BP 138/84; PULSE 80; TEMP 98.4
[2019-04-04] MEDS ORDERED: ACETAMINOPHEN 325 MG TABLET (FP) PO PRN (17:00)
[2019-04-04] MEDS ORDERED: HEPARIN NA (PORCINE) 5,000 UNITS/ML 1ML VIAL SQ SCH (18:00)
--- NOTE | 2019-04-04 18:51 | DS ---
Physical Exam: SUBJECTIVE: Patient seen and examined OBJECTIVE: Afbrile, Hemodynamically Stable. Vital Signs Period Temp Pulse Resp BP Sys/Ocampo Pulse Ox Last 24 Hr 98.1 F-98.9 F 77-84 18-19 138-140/76-84 97-97 PHYSICAL EXAM HEENT - Atraumatic, Normocephalic. Heart - S1, S2, RRR Lungs - Clear to auscultation Abdomen - Soft, non-tender. Bowel Sounds normal. Extremities - No edema, no calf tenderness MS - Kyphosis. No spinal tenderness Neuro - AAO x 3. Tone/Power normal all 4 extremities LABS Laboratory Results - last 24 hr 04/04/19 04/04/19 04/04/19 06:35 08:15 10:30 WBC 8.1 RBC 4.60 Hgb 13.3 Hct 40.6 MCV 88.2 MCH 28.8 MCHC 32.7 RDW 13.2 Plt Count 230 D MPV 7.4 L D Absolute Neuts (auto) 4.2 Neutrophils % 51.5 D Lymphocytes % 41.0 H Monocytes % 4.9 Eosinophils % 1.6 Basophils % 1.0 Nucleated RBC % 0 PT with INR INR Sodium Potassium Chloride Carbon Dioxide Anion Gap BUN Creatinine Est GFR (CKD-EPI)AfAm Est GFR (CKD-EPI)NonAf Random Glucose Calcium Phosphorus Magnesium Total Bilirubin AST ALT Alkaline Phosphatase Total Protein Albumin Urine Color Yellow Yellow Urine Appearance Clear Clear Urine pH 6.0 6.5 Ur Specific [place] 1.011 1.008 L Urine Protein Negative Negative Urine Glucose (UA) Negative Negative Urine Ketones Negative Negative Urine Blood Negative Negative Urine Nitrite Negative Negative Urine Bilirubin Negative Negative Urine Urobilinogen 0.2 0.2 Ur Leukocyte Esterase Negative Negative 04/04/19 04/04/19 10:30 10:30 WBC RBC Hgb Hct MCV MCH MCHC RDW Plt Count MPV Absolute Neuts (auto) Neutrophils % Lymphocytes % Monocytes % Eosinophils % Basophils % Nucleated RBC % PT with INR 11.30 INR 0.96 Sodium 141 Potassium 4.7 Chloride 104 Carbon Dioxide 31 Anion Gap 6 L BUN 26 H Creatinine 1.1 Est GFR (CKD-EPI)AfAm 54.91 Est GFR (CKD-EPI)NonAf 47.38 Random Glucose 113 H Calcium 9.4 Phosphorus 3.8 Magnesium 2.5 H Total Bilirubin 0.4 AST 22 ALT 24 Alkaline Phosphatase 98 Total Protein 7.8 Albumin 4.2 Urine Color Urine Appearance Urine pH Ur Specific [place] Urine Protein Urine Glucose (UA) Urine Ketones Urine Blood Urine Nitrite Urine Bilirubin Urine Urobilinogen Ur Leukocyte Esterase Date of Admission:04/04/19 Date of Discharge: 04/04/19 Minutes to complete discharge: 35 Discharge Summary Reason For Visit: COMPRESSION FRACTURE Hospital Course: 78 year old female with history of Dementia, HTN, HLD, presented to the ED with progressive lower back pain after deep tissue massage 2 months ago, exacerbated by fall yesterday. No preceding chest pain/palpitations/lightheadedness. No HI/ LOC. Neurosurgeon evaluated and recommended Brace and MRI Spine. However, patient and her declined MRI and opted to leave AMA. 1. Acute T12 Compression Fracture with Retropulsion CT L Spine - Acute compression/anterior wedging T12 vertebral body with retropulsion of its post/sup margin resulting in moderate canal stenosis. Neurologically intact L/S MRI requested Neurosurgery consult by Dr. De Luna ? candidate for kyphoplasty NeuroSx eval. Pain control with Percocet q6h - further intensification of pain management by NeuroSx Back Support/Brace PT 2. HTN - Continue Losartan 3. HLD - Continue Rosuvastatin 4. Dementia - Stable. Continue Memantine Patient and want to leave AMA. They were explained at length in Irish using Nulu Phone regarding reason for admission including risks such as worsening back pain, paralysis, disability, . They were also explained need for MRI by NeuroSurgery who explained need for further work-up, brace, etc to patient and . They continue to insist on leaving AMA. Condition: Fair - Instructions Disposition: AGAINST MEDICAL ADVICE - Home Medications Comprehensive Discharge Medication List: Ambulatory Orders Memantine HCl [Memantine HCl ER] 14 mg PO DAILY 06/22/18 Abaloparatide [Tymlos] 1.56 ml SQ DAILY 04/04/19 Icosapent Ethyl [Vascepa] 2 gm PO BID 04/04/19 Losartan Potassium 50 mg PO DAILY 04/04/19 Rosuvastatin [Crestor -] 5 mg PO HS 04/04/19 This patient is new to me today: Yes Date on this admission: 04/04/19 Emergency Visit: Yes ED Registration Date: 04/04/19 Care time: The patient presented to the Emergency Department on the above date and was hospitalized for further evaluation of their emergent condition. Critical Care patient: No - Discharge Referral Referred to [facility] Med [facility].C[facility] No
--- NOTE | 2019-04-04 21:32 | CONSULT ---
Consult - text type - Consultation Consultation Note: Ms. Remy is an 78 y/o female who had a fall in her bathroom yesterday and presented to the ED with c/o back pain. CT L spine showed a severe compression fracture of T12 with retropulsion of bone fragments into the spinal canal. The patient was admitted to the medical service for pain control. I had recommended a TLSO Brace and MRI L spine without contrast to evaluate for any spinal cord compression. The patient denied any weakness or paresthesias of her LEs. She denied any bowel or bladder disturbance. On exam, her LEs were 5/5 b/l. Sensation to LT was intact. Her patellar reflexes were diminished. I observed her ambulate down the with only mild difficulty. The patient received the brace but did not want to wait for the MRI. I spoke to the patient and her for 30 minutes around 6 pm about the potential instability of the fracture and possible need for surgical intervention. I told them that the MRI would provide more information regarding the degree of spinal stenosis and spinal cord compression. I also told them that she is at risk for a spinal cord injury and LE paralysis if her fracture was not properly stabilized. I told them there were no guarantees that the brace alone would be sufficient. The patient and her understood all of these issues and signed out AMA. I strongly encouraged her to wear the brace and call my office for a f/u appt. My discussion with the patient and her was facilitated by a Yakut strapper (ID#[id number]). I also discussed these issues with the hospitalist on service.
[2019-04-05] MEDS ORDERED: LOSARTAN POTASSIUM 50 MG TABLET (FP) PO SCH (10:00)
[2019-04-05] MEDS ORDERED: MEMANTINE HCL 14 MG PO SCH (10:00)
[2019-04-05] MEDS ORDERED: ROSUVASTATIN CA 5 MG TABLET (FP) PO SCH (22:00)
== END 2019-04-04 18:34 | disposition left against medical advice (07) | DRG 544 ==
LOC: JER 05:40 → JERBED 10:10 → OBSVTOIN 10:28 → J6S 12:46
DX: M48.54XA Collapsed vertebra, not elsewhere classified, thoracic region, initial encounter for fracture (principal); W19.XXXA Unspecified fall, initial encounter; Y93.9 Activity, unspecified; Y92.89 Other specified places as the place of occurrence of the external cause; Y99.9 Unspecified external cause status; F03.90 Unspecified dementia, unspecified severity, without behavioral disturbance, psychotic disturbance, mood disturbance, and anxiety; I10 Essential (primary) hypertension; E78.5 Hyperlipidemia, unspecified; M48.04 Spinal stenosis, thoracic region
CPT/HCPCS: 36415; 72131-TC; 80053; 81003; 83735; 84100; 85025; 85610; 87086; 99283-25; G0378

== ENCOUNTER 2020-02-22 01:11 | Emergency (ER) | payer OTHER ==
[2020-02-22 01:14] VITALS: TEMP 98.4; BMI 27.4
--- NOTE | 2020-02-22 01:19 | PDOC ---
History of Present Illness - General Chief Complaint: Pain, Acute Stated Complaint: ACID REFLUX History Source: Patient, Grain Manager Used Exam Limitations: Language Barrier - History of Present Illness Initial Comments: 02/22/20 01:50 *disability case manager used* 79y F with PMH of HTN, HLD presenting to the ER for chest pain. Pt describes the chest pain as a sharp pain which does not radiate. She did mention the pain was epigastric but now in the chest. Denies shortness of breath, cough, pleuritic chest pain, n/v/d, back pain, recent surgeries, headache, fevers, chills, leg swelling, dyspnea, sick contacts, history of NC in the family, smoking. Has not taken anything for the pain. She thinks it is acid reflux. PMD: PMH: see hpi PSH: none Meds: lipitor, bp med Allergies: nkda Social: denies Past History - Past Medical History Allergies/Adverse Reactions: Allergies Allergy/AdvReac Type Severity Reaction Status Date / Time No Known Allergies Allergy Verified 02/22/20 01:12 Home Medications: Ambulatory Orders Memantine HCl [Memantine HCl ER] 14 mg PO DAILY 06/22/18 Abaloparatide [Tymlos] 1.56 ml SQ DAILY 04/04/19 Icosapent Ethyl [Vascepa] 2 gm PO BID 04/04/19 Losartan Potassium 50 mg PO DAILY 04/04/19 Rosuvastatin [Crestor -] 5 mg PO HS 04/04/19 Azithromycin [Zithromax 250mg Tablets -] 250 mg PO UTDICT #6 tab 02/22/20 Methocarbamol [Robaxin -] 500 mg PO BID #10 tablet 02/22/20 COPD: No HTN: Yes Hypercholesterolemia: Yes - Surgical History Cholecystectomy: Yes (MORE THAN 10 YEARS AGO) - Immunization History Immunization Up to Date: Yes - Psycho Social/Smoking Cessation Hx Smoking History: Never smoked Have you smoked in the past 12 months: No Information on smoking cessation initiated: No Hx Alcohol Use: No Drug/Substance Use Hx: No Substance Use Type: None Hx Substance Use Treatment: No *Physical Exam - Vital Signs Last Vital Signs Temp Pulse Resp BP Pulse Ox 98.4 F 84 20 177/84 H 97 02/22/20 01:12 02/22/20 01:12 02/22/20 01:12 02/22/20 01:12 02/22/20 01:12 ED Treatment Course - LABORATORY CBC & Chemistry Diagram: 02/22/20 01:25 02/22/20 01:25 Medical Decision Making - Medical Decision Making 02/22/20 01:59 79y F with PMH of HTN, HLD presenting with chest pain vitals; hypertensive. ddx includes acs, pna, ptx, covid, gastritis/gerd, pancreatitis. low suspicion for dissection. pain for >12h, low suspicion for acute acs. will obtain cbc, cmp, lipase, trop ekg, cxr -dayna waddell. 02/22/20 02:02 ekg: nsr at 83bpm. no sam or depressions normal intervals 02/22/20 02:33 02/22/20 03:15 no leukocytosis, hgb wnl. trop negative. electrolytes wnl. lipase 402. pt states she has pain in the thoracic spine (chronic) for years. will give tylenol and robaxin. pt has comorbidities, has chest pain and xray shows infiltrate cuold be covid. will admit pt. pt refusing to stay, saying she is feeling better. will sign out AMA. pt told that she should return if symptoms get worse. pt signed AMA Discharge - Discharge Information Problems reviewed: Yes Clinical Impression/Diagnosis: Chest pain Qualifiers: Chest pain type: unspecified Qualified Code(s): R07.9 - Chest pain, unspecified Condition: Stable Disposition: AGAINST MEDICAL ADVICE - Admission No - Additional Discharge Information Prescriptions: Methocarbamol [Robaxin -] 500 mg PO BID #10 tablet Azithromycin [Zithromax 250mg Tablets -] 250 mg PO UTDICT #6 tab - Follow up/Referral - Patient Discharge Instructions Additional Instructions: xeyl-ewyqsle-bysc hyungholdeng-gwa yotong-i natanassseubnida. eric byers. jib-e iss- edel son tabitha-vimal miller geos-i johseubnida. tabitha guardadong-yag-i yaggug-artis smartossseubnida. amarilys-roberto [place] maisin- ilago bulliumyeo jisidaelo bog-yonghasibsio. robinson patel-gina rosas-e bonaessda. peter box. tongjeung-i simhaejigeona hoheub-i eolyeowo jigeona saeloun jeungsang-viktoriya ulyeodoeneun jeungsang-i natanamyeon eung-geubsillo dol-a osibsio. gamsahabnida You were seen in the ER for chest pain and back pain. The xray shows signs suspicious for coronavirus. I recommend that you stay at home and practice good hand hygiene. A prescription for a antibiotic was sent to your pharmacy. It is called Azithromycin, take it as directed. I also sent a muscle relaxant to the pharmacy, take as directed. Please make an appointment with your doctor this week. Come back to the ER if you have worsening pain, have difficulty breathing or if any new or concernign symptom develops. Thank you - Post Discharge Activity
[2020-02-22] MEDS ORDERED: MAG HYDROX/AL HYDROX/SIMETH 30 ML UNIT-DOSE CUP PO ONE (01:20)
[2020-02-22] MEDS ORDERED: FAMOTIDINE 20 MG/50 ML IVPB 20 MG/50 ML MG IVPB ONE ×2 (01:20→01:24)
[2020-02-22] MEDS ORDERED: MAG HYDROX/AL HYDROX/SIMETH 30 ML UNIT-DOSE CUP ONE (01:24)
--- NOTE | 2020-02-22 01:39 | PDOC ---
Attending Attestation - Resident Resident Name: Kaitlin Vizcarra - ED Attending Attestation I have performed the following: I have examined & evaluated the patient, The case was reviewed & discussed with the resident, I agree w/resident's findings & plan - HPI HPI: 02/22/20 01:39 Pt comes with MSCP; pain began early yesterday and has been on off like a stabbing sensation. She has no radiation of the pain and pain is not pleuritic and she has no cough and no chills. She has no abdominal pain and no nausea and no vomiting and no diarrhea, and no fever. 02/22/20 01:45 - Physicial Exam PE: 02/22/20 01:46 Normal exam HEENT normal Normal heart rate; [id number]. Normal lungs legs no C/C/E SHe has no abd pain or flank pain afebrile no rashes Agree with resident exam - Medical Decision Making 02/22/20 01:47 Gven pt's age and symptoms, we will do a cardiac workup. 02/22/20 02:59 Pt has elevated lipase. Her CXR shows ground glass appearance. Pt will be admitted 02/22/20 03:01 Pulsox is 97%; we will treat for comm acquired pneumo. She will be admitted 02/22/20 03:05 Pt refusing to stay; she wants to sign AMA. SHe will be given a zpak to go home with Discharge - Discharge Information Problems reviewed: Yes Clinical Impression/Diagnosis: Chest pain Qualifiers: Chest pain type: unspecified Qualified Code(s): R07.9 - Chest pain, unspecified Condition: Stable Disposition: AGAINST MEDICAL ADVICE - Additional Discharge Information Prescriptions: Methocarbamol [Robaxin -] 500 mg PO BID #10 tablet Azithromycin [Zithromax 250mg Tablets -] 250 mg PO UTDICT #6 tab - Follow up/Referral - Patient Discharge Instructions Additional Instructions: aend-xdzmqar-lecr hyungtong-dona landag-i muna. eric byers. jib-e iss- edel son tabitha-vimal miller geos-i johseubnida. hangsaengje seinhqpi-wzy-a yaggug-eulo bonaejyeossseubnida. geugeos-roberto kimball- changago bulliumyeo jisidaelo bog-yonghasibsio. brockduc jacqueline benedictun-gina iwjosedinobrendan yaggug-e bonaessda. peter roberts uisawa yagsoghasibsio. tongjeung-i simhaejigeona hoheub-i eolyeowo jigeona saeloun jeungsang-viktoriya ulyeodoeneun jeungsang-i natanamyeon eung-geubsillo dol-a osibsio. lovehabnida You were seen in the ER for chest pain and back pain. The xray shows signs suspicious for coronavirus. I recommend that you stay at home and practice good hand hygiene. A prescription for a antibiotic was sent to your pharmacy. It is called Azithromycin, take it as directed. I also sent a muscle relaxant to the pharmacy, take as directed. Please make an appointment with your doctor this week. Come back to the ER if you have worsening pain, have difficulty breathing or if any new or concernign symptom develops. Thank you - Post Discharge Activity
[2020-02-22 02:07] LABS: BASO % 0.8 % (0-2.0); EOS % 2.9 % (0-4.5); HEMOGLOBIN 12.4 GM/dL (10.7-15.3); LYMPH % 45.5 % (8-40); MCH 29.3 pg (25.7-33.7); MCHC 33.4 g/dl (32.0-36.0); MEAN CELL VOLUME 87.6 fl (80-96); MEAN PLT VOLUME 7.9 fl (7.5-11.1); MONO % 5.8 % (3.8-10.2); PLATELET COUNT 223 K/MM3 (134-434); RBC 4.22 M/mm3 (3.60-5.2); RDW 13.1 % (11.6-15.6); WHITE BLOOD COUNT 8.2 K/mm3 (4.0-10.0)
[2020-02-22 02:32] LABS: ALBUMIN 3.5 g/dl (3.4-5.0); ALK PHOS 98 U/L (45-117); ANION GAP 7 MMOL/L (8-16); BILIRUBIN,TOTAL 0.5 mg/dL (0.2-1); BLOOD UREA NITROGEN 22.1 mg/dL (7-18); CHLORIDE 107 mmol/L (98-107); CO2 27 mmol/L (21-32); CREATININE 0.9 mg/dL (0.55-1.3); GLUCOSE,RANDOM 113 mg/dL (74-106); LIPASE 402 U/L (73-393); POTASSIUM 3.9 mmol/L (3.5-5.1); SGOT/AST 19 U/L (15-37); SGPT/ALT 24 U/L (13-61); SODIUM 141 mmol/L (136-145); TOT PROT 6.9 g/dl (6.4-8.2)
[2020-02-22] MEDS ORDERED: ACETAMINOPHEN 1000 MG/100 ML VIAL (NON FORMULARY) IVPB ONE (02:33)
[2020-02-22] MEDS ORDERED: ACETAMINOPHEN INJECTION 100 ML IVPB ONE (02:42)
[2020-02-22] MEDS ORDERED: ACETAMINOPHEN 325 MG TABLET (FP) ONE (02:43)
[2020-02-22] MEDS ORDERED: ACETAMINOPHEN 500 MG TABLET (FP) PO ONE (02:43)
[2020-02-22] MEDS ORDERED: LIDOCAINE 5% TOPICAL PATCH ONE (02:53)
[2020-02-22] MEDS ORDERED: METHOCARBAMOL 500 MG TABLET PO ONE (03:01)
[2020-02-22] MEDS ORDERED: AZITHROMYCIN IVPB 500 MG in DEXTROSE 5%-WATER - 250 ML IVPB ONE (03:01)
[2020-02-22] MEDS ORDERED: CEFTRIAXONE 1 GM in DEXTROSE 5%-WATER - 50 ML IVPB ONE (03:01)
[2020-02-22] MEDS ORDERED: METHOCARBAMOL 500 MG TABLET ONE (03:04)
[2020-02-22 03:30] VITALS: BP 145/78; PULSE 82
--- NOTE | 2020-02-24 17:38 | EKG ---
Test Reason : Blood Pressure : / mmHG Vent. Rate : 083 BPM Atrial Rate : 083 BPM P-R Int : 174 ms QRS Dur : 084 ms QT Int : 382 ms P-R-T Axes : 001 -11 012 degrees QTc Int : 448 ms NORMAL SINUS RHYTHM NORMAL ECG WHEN COMPARED WITH ECG OF 03-MAY-2014 18:26, NO SIGNIFICANT CHANGE WAS FOUND Confirmed by VINH PETERS MD ([id number]) on 02/24/2020 5:38:14 PM Referred By: Confirmed By:VINH PETERS MD
== END 2020-02-22 03:28 | disposition left against medical advice (07) ==
LOC: JER 01:11
PROC: 3E033GC Introduction of Other Therapeutic Substance into Peripheral Vein, Percutaneous Approach (ICD-10-PCS; principal; 2020-02-22)
DX: R07.9 Chest pain, unspecified (principal)
CPT/HCPCS: 36415; 71045-TC-FY; 80053; 83690; 84484; 85025; 93005; 93010; 96365; 99285-25

== ENCOUNTER 2022-03-15 23:19 | Emergency (ER) | payer OTHER ==
[2022-03-15 23:32] VITALS: BP 167/89; PULSE 90; TEMP 97.7; BMI 26.5
[2022-03-16 01:15] LABS: BASO % 1.2 % (0-2.0); EOS % 2.8 % (0-4.5); HEMOGLOBIN 12.4 GM/dL (10.7-15.3); LYMPH % 35.8 % (8-40); MCH 28.3 pg (25.7-33.7); MCHC 32.7 g/dl (32.0-36.0); MEAN CELL VOLUME 86.4 fl (80-96); MEAN PLT VOLUME 7.8 fl (7.5-11.1); NEUT % 54.2 % (42.8-82.8); PLATELET COUNT 260 10^3/uL (134-434); RDW 13.3 % (11.6-15.6); WHITE BLOOD COUNT 10.2 K/mm3 (4.0-10.0)
[2022-03-16 01:23] LABS: INR 0.93 (0.83-1.09); PROTHROMBIN TIME (PATIENT) 10.7 SEC (9.7-13.0)
[2022-03-16 01:25] LABS: ACTIVATED PTT 31.4 SECONDS (25.2-36.5)
[2022-03-16 01:45] LABS: BLOOD UREA NITROGEN 19.2 mg/dL (7-18); CALCIUM 8.9 mg/dL (8.5-10.1)
[2022-03-16 01:46] LABS: ALBUMIN 3.8 g/dl (3.4-5.0)
[2022-03-16 01:50] LABS: BILIRUBIN,TOTAL 0.3 mg/dL (0.2-1); TOT PROT 7.6 g/dl (6.4-8.2)
== END 2022-03-16 03:38 | disposition left against medical advice (07) ==
LOC: JER 23:19
DX: R31.9 Hematuria, unspecified (principal)
CPT/HCPCS: 36415; 74177-TC; 80053; 85025; 85610; 85730; 86850; 86900; 86901; 99285-25; Q9967